=== PATIENT | female | born 1970 | race Caucasian/White ===

== ENCOUNTER → 2018-02-05 | Outpatient (CLI) | payer OTHER ==
[~2018-02-05] MED LIST: BUPR150T8 PO; BUPR75TA5 PO; CYCL-331 PO; LEVO25TA4 PO; NAPR-683 PO
--- NOTE | 2018-02-05 11:02 | RAD ---
Bone densitometry scan, 02/05/2018: History: Osteoporosis screening The lumbar spine and right hip were examined utilizing a DEXA technique. The bone mineral density in the lumbar spine as measured from the L1-L4 levels is 1.03 g/sq cm. This yields a T score of -1.2 compatible with osteopenia. The total T score at the right hip is -0.5 which is in the normal range. IMPRESSION: Osteopenia in the lumbar spine
== END | disposition home or self-care (01) ==
LOC: DXRAD 09:32
PROVIDERS: ATTEND Nurse Practitioner Family
DX: Z13.820 Encounter for screening for osteoporosis (principal); M85.88 Other specified disorders of bone density and structure, other site
CPT/HCPCS: 77080